=== PATIENT | female | born 1990 | race Caucasian/White ===

== ENCOUNTER 2018-12-22 05:52 | Inpatient (IN) ==
[2018-12-22] MEDS ORDERED: *HR* Nalbuphine 10 MG/ML AMPUL IVP PRN (06:04)
[2018-12-22] MEDS ORDERED: Lidocaine 1% 20 ML MDV INFILT PRN (06:04)
[2018-12-22] MEDS ORDERED: Famotidine 20 MG/2 ML VIAL IVP PRN (06:04)
[2018-12-22] MEDS ORDERED: Metoclopramide 10 MG/2 ML VIAL IVP PRN (06:04)
[2018-12-22] MEDS ORDERED: miSOPROStol 25 MCG TABLET PO PRN ×2 (06:04→06:15)
[2018-12-22] MEDS ORDERED: Naloxone 0.4 MG/ML INJ IVP PRN (06:04)
[2018-12-22] MEDS ORDERED: Ringers Solution, Lactated 1,000 ML IVC SCH (06:15)
[2018-12-22] MEDS ORDERED: D5% in 0.45% NACL 1,000 ML IVC SCH (06:15)
[2018-12-22 06:46] LABS: Amphetamine Screen,Urine Negative ng/mL (Cutoff=1000); Barbiturate Screen,Urine Negative ng/mL (Cutoff=200)
[2018-12-22 06:47] LABS: Benzodiazepines Screen,Urine Negative ng/mL (Cutoff=300); Cannabinoid Screen,Urine Negative ng/mL (Cutoff = 50); Cocaine Screen,Urine Negative ng/mL (Cutoff= 300); Opiate Screen,Urine Negative ng/mL (Cutoff=300); Phencyclidine Screen,Urine Negative ng/mL (Cutoff=25)
[2018-12-22 06:52] LABS: Hematocrit 33.8 % (35.3-44.9); Hemoglobin 11.1 g/dL (11.5-15.4); Mean Corpuscular HGB Conc 32.8 g/dL (31.6-35.5); Mean Corpuscular Hemoglobin 28.1 pg (28.0-33.3); Mean Corpuscular Volume 85.6 fL (83.0-100.0); Mean Platelet Volume 11.4 fL (9.4-12.4); Platelet Count 138 K/mcL (140-400); Red Blood Count 3.95 M/mcL (3.82-4.97); Red Cell Distribution Width 17.2 % (11.5-14.5); White Blood Count 9.8 K/mcL (4.3-11.1)
[2018-12-22 07:18] LABS: Large Platelets Present (Not Present); Lymphocytes # 1.8 K/mcL (0.6-4.6); Monocytes # 0.4 K/mcL (0.0-1.3); Neutrophils # 7.5 K/mcL (1.6-8.9); Platelet Estimate Slight Decrease (Normal)
--- NOTE | 2018-12-22 10:06 | OB/GYN History & Physical ---
Date of Encounter: 12/22/18 Time of Encounter: 10:04 Assessment and Plan (1) Encounter for induction of labor Current visit: Yes Status: Acute induced labor at 39 weeks GA thus plan for vaginal delivery Hector ever 3-4 minutes with dilations to 5 GBS negative status - cytotec with PO 50 mg given - IVF - plan for AROM when appropriate - patient uncertain as to epidural at this time but anesthesia consulted - nubain when needed Admit to L&D (2) 39 weeks gestation of Current visit: No Status: Acute (3) Gestational HTN Current visit: Yes Status: Acute GHTN controlled with out medications - continue to monitor vitals Qualifiers: Trimester: third trimester Qualified Code(s): O13.3 - Gestational [-induced] hypertension without significant proteinuria, third trimester (4) macrosomia during in third trimester Current visit: Yes Status: Acute Indications of induction of labor Qualifiers: Fetus number: single or unspecified fetus Qualified Code(s): O36.63X0 - Maternal care for excessive growth, third trimester, not applicable or unspecified History of Present Illness Chief complaint: induction of labor HPI: Ms. Claudio is a 28 year old female presents for induction of labor at 39 weeks. She admit to contractions and movement but denies vaginal bleeding and leakage of clear fluids . She has followed with Dr Roy for her complicated by macrosomia, anemia, gestational HTN, and Vitamin B12 def. History of migraine treated with prn Tylenol and sumatriptan last used three days ago and denies current headache . She reports adherence to medications include daily ASA, , folic acid, Vitamin B 12, Mg and Vitamin C. She has no past surgical history but denies history of abnormal bleeding. Denies smoking , EtOH or illicit substance use. Blood Type B + GBD negative Hep surface non reactive HIV non reactive Treponema negative G/C negative Varicella Immune Rubella Equivocal Past Med Surg Social Fam HX - Past Medical History Medical history: no medical history Additional medical history: high cholesterol (but has never been on mediction). vaginal delivery: 10/12/12 Psychiatric history: no psych history - Past Surgical History Surgical History: no surgical history - Social History Smoking Status: Never smoker Smokeless Tobacco Status: No Alcohol use: none Drug use: none - Family History Mother Family Member Ethnicity: Non- Living Status: Still Living Hx Family Cardiac Disorders: Yes (HTN) Hx Family Respiratory Disorders: No Hx Family Cancer: No Hx Family GI Disorders: No Hx Family Endocrine Disorder: No Hx Family Neuromuscular Disorders: No Hx Family Neurologic Disorders: No Hx Family HEENT Disorders: No Hx Family Autoimmune Disorders: No Obstetrical History - Pregnancies : 3 Para: 2 Term: 2 : 0 Ab's: 0 Livin Medications and Allergies Ferrous Sulfate 325 mg PO DAILY 04/09/15 [History] Vit/FA 1 each PO DAILY 04/13/15 [History] Aspirin [[place] Aspirin EC] 81 mg PO 12/22/18 [History] Allergy/AdvReac Type Severity Reaction Status Date / Time No Known Allergies Allergy Verified 12/22/18 06:15 Review of System OB All systems PM: reviewed and no additional remarkable complaints except as stated - Nose, mouth, and throat Nose, mouth and throat: no dizziness - Cardiovascular Cardiovascular: no chest pain, no edema, no palpitations - Respiratory Respiratory: no cough, no dyspnea - Gastrointestinal Gastrointestinal: no diarrhea, no vomiting - Genitourinary Genitourinary: no dysuria, no hematuria - Muscloskeletal Musculoskeletal: no numbness - Neurological Nerological: headache(s) (not currently present), no dizziness, no paresthesias, no syncope Exam - Vital Signs Vital signs: Initial Vital Signs Temp Pulse BP 98.4 F 103 125/70 12/22/18 06:19 12/22/18 06:19 12/22/18 06:19 - Constitutional Constitutional: well developed, well nourished, obese - HEENT HEENT: EOMI, Mucus Membranes Moist - Neck Neck exam: full ROM, normal inspection - Lungs Respiratory exam: CTAB - Cardiovascular Cardiovascular exam: RRR, +S1, +S2 - Abdomen Abdomen: Present: bowel sounds normal, gravid, non tender - Extremities Extremities exam: full ROM, pedal edema (trace bilateral non pitting in up to ankles ) - Vagina Vagina: Present: normal moisture - Cervix Dilation: 3 (per Dr Roy) Effacement: 80 Station: -2 - Uterus Uterus exam: Present: normal size, normal contour Results Result Diagrams: 12/22/18 06:25 Abnormal lab results Hgb 11.1 g/dL (11.5-15.4) L 12/22/18 06:25 Hct 33.8 % (35.3-44.9) L 12/22/18 06:25 RDW 17.2 % (11.5-14.5) H 12/22/18 06:25 Plt Count 138 K/mcL (140-400) L 12/22/18 06:25 22.0 % (0-4) H 12/22/18 06:25 2.0 % (0) H 12/22/18 06:25 Slight Decrease (Normal) L 12/22/18 06:25 Present (Not Present) A 12/22/18 06:25 All other labs normal. - VTE Reasons for not Prescribing Prophylaxis: Treatment not Indicated - Low risk for VTE - Attending Attestation I examined this patient and my medical decision-making was reviewed with the Resident Physician. I agree with the documented findings, disposition and treatment plan as described except to the extent set forth below. Isaura Roy M.D.
--- NOTE | 2018-12-22 10:36 | Anesthesia Evaluation PreOp ---
Date of Encounter: 12/22/18 Time of Encounter: 10:34 - Past History Planned Operation: SALVATORE Cardiac History: Hyperlipidemia (no meds during ) Pulmonary History: Denies Any Significant HX IMMIGRATION INSPECTOR History: Denies Any Significant HX Other Medical History: GERD Anesthesia History: No Prior Anesthetic Complications, Past Anesthesia (salvatore) : Yes Test: Positive Alcohol Use: none Drug use: none Medications and Allergies Ferrous Sulfate 325 mg PO DAILY 04/09/15 [History] Vit/FA 1 each PO DAILY 04/13/15 [History] Aspirin [[place] Aspirin EC] 81 mg PO 12/22/18 [History] Allergy/AdvReac Type Severity Reaction Status Date / Time No Known Allergies Allergy Verified 12/22/18 06:15 - Meds/Allergy Pre-op Review Medications Reviewed: Yes Allergies Reviewed: Yes Beta Blockers on Current Med List: No Anesthesia Results - Labs 12/22/18 06:25 Anesthesia Exam Vital Signs/O2 Sat, Most Current Temp Pulse BP 98.4 F 103 125/70 12/22/18 06:19 12/22/18 06:19 12/22/18 06:19 Height: 5'2" Weight: 90k NPO (# of Hours): 2 Pain Scale: 4 Pain Scale Used: Numeric (1 - 10) - HEENT Pupil (Motor): Pupils equal Mallampati: II Teeth: Normal Oral Opening: Greater than 3 - IMMIGRATION INSPECTOR LOC: Oriented IMMIGRATION INSPECTOR Motor: Normal RUE, Normal LUE, Normal RLE, Normal LLE, Normal Face IMMIGRATION INSPECTOR Sensory: Normal: RUE, LUE, RLE, LLE, Face - Cardiac Rhythm: Regular Murmur: None - Pulmonary Breath Sounds: bilateral Clear Respiratory Effort: Symmetrical Anesthesia Assess/Plan ASA Score: 2 Level of consciousness: Cooperative Anesthetic Plan: Epidural (risks discussed, questions answered, consented) Autologous Blood: No Monitoring Plan: Standard Monitors Recovery Plan: Other
[2018-12-22] MEDS ORDERED: *HR* Ropivacaine/PF 0.2% 20 ML VIAL EP ONE (10:39)
[2018-12-22] MEDS ORDERED: *HR* FentaNYL (PF) 100 MCG/2 ML VIAL EP ONE (10:39)
[2018-12-22] MEDS ORDERED: Epidural Premix (fent/bupiv) 110 ML EP SCH (10:45)
--- NOTE | 2018-12-22 14:12 | OB Labor Progress Note ---
Date of Encounter: 12/22/18 Time of Encounter: 14:09 Labor Progress Note - Subjective Subjective: The patient appreciates the contractions that she is having. She declines any pain management intervention at this time - Vital Signs Vital Signs: Afebrile, vital signs stable - Cervix Cervix: 4/80/-1, vertex presentation - Heart Tones Heart Tones: 140s, CAT 1 - [place]: Irregular, every 2-4 minutes, after a single dose of Cytotec - Interventions Interventions: 39 week IUP for induction of labor - Plan Plan: Amniotomy, small amount of clear fluid seen. Continue to monitor for need for augmentation. Anticipate vaginal delivery
[2018-12-22] MEDS ORDERED: *HR* FentaNYL (PF) 100 MCG/2 ML VIAL ONE (15:30)
--- NOTE | 2018-12-22 15:59 | Anesthesia Procedures ---
Date of Encounter: 12/22/18 Time of Encounter: 15:57 Procedures: Anesthesia - Epidural/Spinal Patient ID/Chart reviewed: Yes Patient examined: Yes OB Eval: Gestational age: 39 OB Eval: : 3 OB Eval: Hx Para: 2 OB Eval: Dilated at (cm): 5 OB Eval: Contractions: Non-stressed pattern Consent Obtained: Yes Supplemental Oxygen: None/Room Air Site Prep: Aseptic Technique, Sterile prep and drape, 0.5% Chlorhexidine/Alcohol Patient position: upright Local Anesthetic: Lidocaine 1% Amount of Local Anesthetic used: 3 Touhy Needle Gauge: 18 Touhy Needle Depth (cm): 7 Catheter Depth at Skin (cm): 15 Test Dose (1.5% Lido + Epi): Volume given (mls): 3 Test Dose Result: Negative Loading Dose: Fentanyl (mcg): 100 Loading Dose: Other: ropivacaine 0.2% 5cc Loading Dose Administered: Thru Touhy Needle Infusion Med: 0.125% Bupivacaine w/ 2 mcg/ml Fentanyl Infusion Rate (mls/hr): 15 (pcea 5cc q30") Catheter Secured in Place: Tegaderm Interspace Used: L2-L3 Loss of Resistance (SAMY): Yes Blood: No CSF: No Paresthesia: No Procedure: aseptic, tolerated well, VSS. effective Vitals + FHT's: 122/78 88 fht 132
--- NOTE | 2018-12-22 17:36 | OB Labor Progress Note ---
Date of Encounter: 12/22/18 Time of Encounter: 17:33 Labor Progress Note - Subjective Subjective: The patient reports being comfortable with her epidural - Vital Signs Vital Signs: Afebrile, vital signs stable - Cervix Cervix: 5/90/0, vertex - Heart Tones Heart Tones: 130s baseline, CAT 1, occasional variable - [place]: Irregular, 3-7 minutes by external monitor, difficult to monitor at times - Interventions Interventions: 39 week IUP for induction of labor - Plan Plan: Pain management successful with labor epidural, IUPC placed for contraction monitoring, start augmentation with oxytocin as needed
[2018-12-22] MEDS ORDERED: Oxytocin 20 units/ LR 1000 mL 20 UNIT/1,000 ML BAG IVC SCH ×2 (17:45→23:00)
[2018-12-22] MEDS ORDERED: Acetaminophen 325 MG TABLET PO PRN (22:50)
[2018-12-22] MEDS ORDERED: Measles/Mumps/Rubella Vacc 0.5 ML VIAL SQ PRN (22:50)
[2018-12-22] MEDS ORDERED: Ibuprofen 600 MG TABLET PO PRN (22:50)
[2018-12-22] MEDS ORDERED: Lanolin 7 G OINT...G. TP PRN (22:52)
[2018-12-22] MEDS ORDERED: Benzocaine/Menthol 56 GM AEROSOL SPRAY TP PRN (22:53)
--- NOTE | 2018-12-22 22:56 | OB/GYN Procedure Note ---
Delivery - Delivery Date: 12/22/18 Provider: Isaura Roy Intrapartum events: none Delivery induction: misoprostol Delivery augmentation: rupture of membranes, pitocin Delivery monitor: external FHT, external uterine, internal uterine Anesthesia: epidural Quantitated Blood Loss: 50 - Infant (s) Infant A Infant Delivery Date: 12/22/18 Infant Delivery Time: 22:33 Presentation: vertex Position: ZENY Route of delivery: Gender: Female Viability: Viable Pounds: 9 Ounces: 1 Weight Gram: 4.115 kg at 1 minute: 8 at 5 mins: 9 Shoulder Dystocia: not encountered Specimens collected: cord blood Placenta: spontaneous Cord: 3 umbilical vessels - Repair Episiotomy: none Laceration Description: Perineal - 1st Degree, Superficial (Right vaginal) - Complications Delivery complications: none Delivery comments: Patient was complete and pushing with epidural anesthesia with a spontaneous vaginal delivery attended by myself and resident Dr. Velma Lee D.O., in the ZENY position of a vigorous female weighing 9 lbs. 1 oz., with Apgars of 8 at 1 minute and 9 at 5 minutes. was handed to the nursery care team. The cord was clamped and cut after pulsations ceased. Cord blood was obtained. There was a first-degree perineal laceration which was repaired with 3-0 Monocryl in the usual fashion. There was a superficial right vaginal wall laceration which was hemostatic and not repaired. There was a small amount of vaginal cervical bruising but no active bleeding. Estimated blood loss 50 mL's. Complications none. Both mother and infant were recovering in stable condition in the LDR. - Disposition Mom disposition: stable in LDR disposition: stable in LDR
[2018-12-23] MEDS ORDERED: Ibuprofen 600 MG TABLET PO PRN (01:18)
[2018-12-23] MEDS ORDERED: Naloxone 0.4 MG/ML INJ IVP PRN (01:18)
[2018-12-23] MEDS ORDERED: D5% in 0.45% NACL 1,000 ML IVC SCH (01:18)
[2018-12-23] MEDS ORDERED: Lanolin 7 G OINT...G. TP PRN (01:18)
[2018-12-23] MEDS ORDERED: Ringers Solution, Lactated 1,000 ML IVC SCH (01:18)
[2018-12-23] MEDS ORDERED: Oxytocin 20 units/ LR 1000 mL 20 UNIT/1,000 ML BAG IVC SCH ×2 (01:18)
[2018-12-23] MEDS ORDERED: Benzocaine/Menthol 56 GM AEROSOL SPRAY TP PRN (01:18)
[2018-12-23] MEDS ORDERED: Epidural Premix (fent/bupiv) 110 ML EP SCH (01:18)
[2018-12-23] MEDS ORDERED: Lidocaine -MPF 1% 5 ML AMPUL INFILT PRN (01:18)
[2018-12-23] MEDS ORDERED: Metoclopramide 10 MG/2 ML VIAL IVP PRN (01:18)
[2018-12-23] MEDS ORDERED: *HR* Ropivacaine/PF 0.2% 20 ML VIAL EP ONE (01:18)
[2018-12-23] MEDS ORDERED: *HR* FentaNYL (PF) 100 MCG/2 ML VIAL EP ONE (01:18)
[2018-12-23] MEDS ORDERED: Measles/Mumps/Rubella Vacc 0.5 ML VIAL SQ PRN (01:18)
[2018-12-23] MEDS ORDERED: Prenatal Vit/FA 1 EACH TABLET PO SCH ×2 (09:00)
[2018-12-23] MEDS: Acetaminophen 325 MG TABLET PO PRN ×2 (09:47→20:48)
--- NOTE | 2018-12-23 10:03 | Discharge Summary ---
Date of Encounter: 12/23/18 Time of Encounter: 10:00 - Discharge Diagnosis (1) Vaginal delivery Priority: Primary Status: Acute Comments: Patient meeting day one milestones. Pain well-controlled with prescribed medications. Voiding without difficulty, tolerating regular diet, bleeding light. No bowel movement yet. Anticipate discharge tonight (2) First degree perineal laceration during delivery Priority: Secondary Status: Acute Comments: Motrin, Dermoplast, ice packs as needed for discomfort. (3) Breast feeding status of mother Priority: Secondary Status: Acute Comments: support as needed Will provide breast pump prescription if needed. - Discharge Medications Prescriptions: New Breast Pump [BREAST PUMP] 1 each .ROUTE AD #1 each Docusate [Colace] 100 mg PO BID capsule Benzocaine/Menthol [place] [Dermoplast [place]] 1 appl TP QID PRN aerosol PRN Reason: See Comments Lanolin [Lansinoh] 1 appl TP QID PRN oint...g. PRN Reason: Sore Nipples Ibuprofen [Motrin] 600 mg PO Q6HR PRN #60 tablet PRN Reason: Cramping Acetaminophen [Tylenol] 650 mg PO Q6HR PRN tablet PRN Reason: Mild Pain Continued Vit/FA 1 each PO DAILY Aspirin [[place] Aspirin EC] 81 mg PO Discontinued Ferrous Sulfate 325 mg PO DAILY Home Medications: Vit/FA 1 each PO DAILY 04/13/15 [History] Aspirin [[place] Aspirin EC] 81 mg PO 12/22/18 [History] Acetaminophen [Tylenol] 650 mg PO Q6HR PRN tablet 12/23/18 [Rx] Benzocaine/Menthol [place] [Dermoplast [place]] 1 appl TP QID PRN aerosol 12/23/18 [Rx] Breast Pump [BREAST PUMP] 1 each .ROUTE AD #1 each 12/23/18 [Rx] Docusate [Colace] 100 mg PO BID capsule 12/23/18 [Rx] Ibuprofen [Motrin] 600 mg PO Q6HR PRN #60 tablet 12/23/18 [Rx] Lanolin [Lansinoh] 1 appl TP QID PRN oint...g. 12/23/18 [Rx] Allergies/Adverse Reactions: Allergy/AdvReac Type Severity Reaction Status Date / Time No Known Allergies Allergy Verified 12/22/18 06:15 Data Procedures and tests throughout hospitalization: Laboratory Tests 12/22/18 12/22/18 06:25 06:25 WBC 9.8 RBC 3.95 Hgb 11.1 L Hct 33.8 L MCV 85.6 MCH 28.1 MCHC 32.8 RDW 17.2 H Plt Count 138 L MPV 11.4 Seg Neutrophils % 54.0 Band Neutrophils % 22.0 H Lymphocytes % 18.0 Monocytes % 4.0 Metamyelocytes % 2.0 H Neutrophils # 7.5 Lymphocytes # 1.8 Monocytes # 0.4 Platelet Estimate Slight Decrease L Large Platelets Present A Urine Opiates Screen Negative Ur Barbiturates Screen Negative Ur Phencyclidine Scrn Negative Ur Amphetamines Screen Negative U Benzodiazepines Scrn Negative Urine Cocaine Screen Negative U Marijuana (THC) Screen Negative Ur Drug Screen Interp See Below Date of admission: 12/22/18 05:52 Primary care physician: Jazmyn Wakefield CNP Consults: 12/22/18 22:50 Consult to Furniture Finisher Helper [CONS] Routine Comment: Vaginal delivery, consult needed Discharging clinician: Maria Alejandra Sullivan Anticipated date of discharge: 12/23/18 - Patient Status Disposition: Home, Self-Care Condition: Good Functional capacity at discharge: independent ambulation Overall status at discharge: patient is progressing back to baseline - Discharge Instructions Follow Up With: Jazmyn Wakefield CNP [Primary Care Provider] - Isaura Roy MD [Partnered Physician] - - Diet and Activity Activity: resume usual activities as tolerated Diet: regular diet Hospital Course Reason for admission: induction of labor, IUP at term Delivery: Episiotomy: none Laceration: 1st degree Other procedures: none complications: none Discharge diagnosis: IUP at term delivered baby: female Hospital course: Delivery Date: 12/22/18 Provider: Isaura Roy Intrapartum events: none Delivery induction: misoprostol Delivery augmentation: rupture of membranes, pitocin Delivery monitor: external FHT, external uterine, internal uterine Anesthesia: epidural Quantitated Blood Loss: 50 - (s) A Infant Delivery Date: 12/22/18 Delivery Time: 22:33 Presentation: vertex Position: ZENY Route of delivery: Gender: Female Viability: Viable Pounds: 9 Ounces: 1 Weight Gram: 4.115 kg at 1 minute: 8 at 5 mins: 9 Shoulder Dystocia: not encountered Specimens collected: cord blood Placenta: spontaneous Cord: 3 umbilical vessels - Repair Episiotomy: none Laceration Description: Perineal - 1st Degree, Superficial (Right vaginal) - Complications Delivery complications: none Delivery comments: Patient was complete and pushing with epidural anesthesia with a spontaneous vaginal delivery attended by myself and resident Dr. Velma Lee D.O., in the ZENY position of a vigorous female weighing 9 lbs. 1 oz., with Apgars of 8 at 1 minute and 9 at 5 minutes. Infant was handed to the nursery care team. The cord was clamped and cut after pulsations ceased. Cord blood was obtained. There was a first-degree perineal laceration which was repaired with 3-0 Monocryl in the usual fashion. There was a superficial right vaginal wall laceration which was hemostatic and not repaired. There was a small amount of vaginal cervical bruising but no active bleeding. Estimated blood loss 50 mL's. Complications none. Both mother and infant were recovering in stable condition in the LDR. - Disposition Mom disposition: stable in LDR [place] disposition: stable in LDR Time Attestation: Total time spent providing and/or coordinating discharge services: Time Spent: Less than 30 minutes Exam - Constitutional Vitals: Temp Pulse Resp BP Pulse Ox 98.3 F 87 16 124/69 98 12/23/18 08:22 12/23/18 08:22 12/23/18 08:22 12/23/18 08:22 12/23/18 02:40 General appearance IM: A&O X 3, pleasant, no acute distress, answers questions appropriately - Respiratory Respiratory exam: Present: CTAB. Absent: respiratory distress - Cardiovascular Cardiovascular exam IM: Present: RRR, +S1, +S2. Absent: irregular rhythm - GI/Abdominal GI/Abdominal exam IM: normal bowel sounds Incision: normal, dry, intact - Rectal Rectal exam: deferred - Uterine Tone: Firm Uterus Position: At Umbilicus, Midline - Extremities Exam Extremities exam IM: Present: full ROM, normal capillary refill, normal inspection. Absent: calf tenderness - Neurological Exam Neurological exam: alert, normal gait, oriented X3
[2018-12-23 16:37] VITALS: BP 109/67
== END 2018-12-24 00:10 | disposition home or self-care (01) | DRG 807 ==
LOC: 1NENULAB 05:52 → 1NENUOBS 12-23 01:17
PROVIDERS: ADMIT Obstetrics & Gynecology; ATTEND Obstetrics & Gynecology